=== PATIENT | female | born 1955 | race Caucasian/White ===

== ENCOUNTER → 2017-12-19 11:28 | Outpatient (CLI) | payer OTHER, SELFPAY ==
--- NOTE | 2017-12-19 | DI.MG.S_ITS ---
BILATERAL DIGITAL SCREENING MAMMOGRAM 3D/2D WITH CAD: 12/19/2017 CLINICAL: Routine screening. Comparison is made to exams dated: 12/07/2016 mammogram, 11/30/2015 mammogram, and 03/10/2014 mammogram - [facility]. There are scattered fibroglandular elements in both breasts. Current study was also evaluated with a Computer Aided Detection (CAD) system. No significant masses, calcifications, or other findings are seen in either breast. There has been no significant interval change. IMPRESSION: NEGATIVE There is no mammographic evidence of malignancy. A 1 year screening mammogram is recommended. This exam was interpreted at Station ID: [id number]. NOTE: For mammograms, a report in lay terms will be sent to the patient. Approximately 15% of breast malignancies will not be visualized mammographically. In the management of a palpable breast mass, a negative mammogram must not discourage biopsy of a clinically suspicious lesion. Electronically Signed By: Ankit fabian/penjovita:12/19/2017 23:34:12 letter sent: Normal Exam ACR BI-RADS Category 1: Negative 3341F
== END ==
PROVIDERS: PCP Family Medicine; Visit Provider Family Medicine
DX: Z12.31 Encounter for screening mammogram for malignant neoplasm of breast (principal)
CPT/HCPCS: 77063; 77067

== ENCOUNTER 2018-01-31 16:46 | Emergency (ER) | payer OTHER, SELFPAY ==
[2018-01-31 16:55] VITALS: BP 145/81; PULSE 67; RESP 20; TEMP 37; O2SAT 99; BMI 25.8
--- NOTE | 2018-01-31 18:26 | ED_ITS ---
HPI - Neuro Symptoms/Deficit General Chief Complaint: Neuro Symptoms/Deficit Stated Complaint: VISION CHANGES, TINGLING Time Seen by Provider: 01/31/18 18:06 Source: patient Mode of arrival: ambulatory Limitations: no limitations History of Present Illness HPI Narrative: The patient is a 62-year-old female who presents with blurry vision now resolved. She says she was getting a massage they worked her neck and up into the posterior head quite hard at the end. When she stood up she had some blurry vision both sides never passed out no blackening. She then sat down and has some numbness and tingling across both arms and her chest. No weakness no facial drooping no difficulty speaking. Division lasted probably about 5 min she still just was not feeling quite right EMS was called but she refused transport and came by POV. She says she did not eat much today probably did not drink a lot of water either. Overall her symptoms have completely resolved. On Anticoagulants: No Related Data Home Medications Medication Instructions Recorded Confirmed multivitamin 1 cap PO Q DAY #0 10/27/11 01/31/18 fluticasone 1 spray INTRANASAL PRN PRN #0 01/10/17 01/31/18 Previous Rx's Medication Instructions Recorded estriol (bulk) 100 % powder 0.2 % VAGINAL .COMPLEX #100 gram 01/16/18 Allergies Allergy/AdvReac Type Severity Reaction Status Date / Time latex [LATEX] Allergy Severe SKIN PEELS Verified 01/31/18 16:59 codeine [CODEINE] Allergy Mild DIZZY, Verified 01/31/18 16:59 NAUSEA, VOMITING Review of Systems Review of Systems GENERAL: Denies chills, fatigue, malaise, fever, sweats, travel HEENT: Denies sinus pain, ear pain, sore throat, difficulty swallowing, neck pain RESPIRATORY: Denies dyspnea, cough, wheezing, hemoptysis, sputum. CARDIOVASCULAR: Denies chest pain, palpitations, orthopnea, edema GASTROINTESTINAL: Denies nausea, vomiting, abdominal pain, diarrhea, constipation, melena. : Denies dysuria, frequency, incontinence, hematuria, urinary retention, flank pain. MUSCULOSKELETAL: Denies weakness, joint pain, or bony pain SKIN: No rash, no erythema, no pruritus NEUROLOGIC: See HPI PSYCHIATRIC: No concerning psychosocial issues. 12 point review of systems is negative except for those stated above and HPI [facility] Medical History VAIN I (vaginal intraepithelial neoplasia grade I) (Resolved) Surgical History History of varicose vein stripping (Resolved) Status post hysterectomy (Resolved 1979) Social History marital status: number of children: 2 household members: spouse lives independently: Yes caregiver/support person: No housing: house education level: college occupational status: previously employed Smoking Status: Former smoker second hand exposure: No alcohol intake: current substance use type: does not use Exam Initial Vital Signs Initial Vital Signs: Vital Signs Temperature 98.6 F 01/31/18 16:55 Pulse Rate 67 01/31/18 16:55 Respiratory Rate 20 01/31/18 16:55 Blood Pressure 145/81 H 01/31/18 16:55 Pulse Oximetry 99 01/31/18 16:55 GENERAL: Well-appearing, well-nourished and in no acute distress. HEENT: Head atraumatic,EOMI, pupils reactive, face symmetric, neck is supple no vertebral tenderness CARDIOVASCULAR: Regular rate and rhythm without murmurs, rubs or gallops. RESPIRATORY: Breath sounds equal bilaterally, no wheezes rales or rhonchi. ABDOMEN: Soft, nontender. Normoactive bowel sounds all 4 quadrants. No guarding or rebound. EXTREMITIES: Normal range of motion, no clubbing or edema. Neurovascularly intact NEUROLOGICAL: Alert and oriented x4.Normal gait and speech. Cranial nerves II through XII grossly intact. Good [id number], good [id number], strength equal bilaterally, no dysarthria or aphasia, sensation in tact to soft touch bilaterally, no visual changes, no facial droop SKIN: Warm, dry, no laceration, no petechiae, no rashes or lesions. Scores NIH Stroke Scale Level of Conciousness: Alert, keenly responsive Ask month/age: Answers both questions correctly. Open/close eyes, close hand: Performs both tasks correctly Best gaze horizontal: Normal Visual odell: No visual loss Facial palsy: Normal symetrical movement Left arm drift: No drift for full 10 sec Right arm drift: No drift for full 10 sec Left leg drift: No drift for full 10 sec Right leg drift: No drift for full 10 sec Limb ataxia: Absent Sensory on face/arms/legs: Normal, no sensory loss Best language: No aphasia, normal Dysarthria: Normal Extinction or inattention: No abnormality Total NIH Stroke scale score: 0 Course Orders Ordered: ED Orders 01/31/18 18:07 Basic Metabolic Panel Stat Complete Blood Count AUTO DIFF Stat Discontinued Medications Sodium Chloride (Normal Saline 0.9%) 1,000 mls @ 1,000 mls/hr IV BOLUS ONE Stop: 01/31/18 19:21 Last Infusion: 01/31/18 19:48 Dose: 0 mls/hr Admin: 01/31/18 18:51 Dose: 1,000 mls/hr Vital Signs - 8 hr 01/31/18 16:55 01/31/18 18:30 01/31/18 19:49 Temperature 98.6 F 98 F Pulse Rate 67 84 64 Respiratory Rate 20 20 Blood Pressure 145/81 H 109/68 Blood Pressure [Left Arm] 107/77 Pulse Oximetry 99 97 96 MDM - Neuro Symptoms/Deficit Lab Data Result diagrams: 01/31/18 18:07 01/31/18 18:07 Lab Results 01/31/18 01/31/18 Range/Units 18:07 18:07 WBC 6.1 (4.5-11.0) X10^3/uL RBC 4.57 (4.0-5.2) X10^6/uL Hgb 14.4 (12.0-16.0) g/dL Hct 43.4 (36-46) % MCV 94.9 (80-100) fL MCH 31.6 (26-34) PG MCHC 33.3 (30-36) % RDW 14.1 (11.6-14.8) % Plt Count 224 (150-400) X10^3/uL Neut % (Auto) 65.2 (50-75) % Lymph % (Auto) 26.7 (25-40) % Teller % (Auto) 5.3 (3-14) % Eos % (Auto) 2.0 (2-4) % Baso % (Auto) 0.8 (0-2) % Neut # (Auto) 3900 (9944-0046) /uL Sodium 142 (137-145) mmol/L Potassium 3.9 (3.4-5.1) mmol/L Chloride 104 (98-107) mmol/L Carbon Dioxide 28 (22-32) mmol/L BUN 17 (7-17) mg/dL Creatinine 0.90 (0.52-1.04) mg/dL Estimated GFR > 60.0 (>60) mL/min BUN/Creatinine Ratio 18.9 (6-22) Glucose 99 (80-110) mg/dL Calcium 9.0 (8.4-10.2) mg/dL MDM Narrative Medical decision making narrative: Patient overall is feeling better. Her symptoms lasted less than 1 hr in totality. Symptoms were bilaterally not consistent with CVA. This is likely due to dehydration and not eating much, along with aggressive massage. At this time I do not see need for head CT. I did discuss this with the patient. Overall she feels better ready and able to go. I discussed all findings with the patient and , Education has been performed regarding treatment plan, diagnosis, warning signs and symptoms and all concerns have been addressed. Verbally agree with and understood all of the above. Discharge Plan Departure Patient Disposition: Home Clinical Impression: Syncope, near Discharge Date/Time: 01/31/18 19:51 Interventions: ED Discharge Assessment Last Done: 01/31/18 19:49 Instructions: DI for Syncope in Adults (Fainting), DI for Dehydration -- Adult Activity Restrictions/Additional Instructions: *You have been diagnosed with near syncope *What to do: Symptoms today not consistent with stroke. Likely multifactorial with dehydration not eating and aggressive massage. Eat small frequent meals, increase fluid intake especially when having the size *Continue to take medications as directed *Follow up with your primary care provider in 2-3 days *Return to ER if you should have passing out, one-sided weakness, difficulty speaking, heart palpitations or any new, worsening or concerning symptoms Prescriptions: No Action multivitamin Tablet 1 cap PO Q DAY Qty: 0 RF: 0 fluticasone 16 GM spray,suspension 1 spray Intranasal PRN PRN (Reason: Congestion) Qty: 0 RF: 0 estriol (bulk) 100 % powder 0.2 % Vaginal .COMPLEX Qty: 100 RF: 5 Referrals: Renetta Navarro MD [Primary Care Provider] -
[2018-01-31 18:27] LABS: Add Manual Diff / Slide Review NO; Basophils Percent Auto 0.8 % (0-2); Hematocrit 43.4 % (36-46); Hemoglobin 14.4 g/dL (12.0-16.0); Lymphocytes Percent Auto 26.7 % (25-40); Mean Corpuscular HGB Conc 33.3 % (30-36); Mean Corpuscular Hemoglobin 31.6 PG (26-34); Mean Corpuscular Volume 94.9 fL (80-100); Monocytes Percent Auto 5.3 % (3-14); Neutrophils Absolute Auto 3900 /uL (3000-5900); Neutrophils Percent Auto 65.2 % (50-75); Platelet Count 224 X10^3/uL (150-400); Red Blood Cell Count 4.57 X10^6/uL (4.0-5.2); Red Cell Distribution Width 14.1 % (11.6-14.8); White Blood Cell Count 6.1 X10^3/uL (4.5-11.0)
[2018-01-31 18:30] VITALS: BP 107/77; PULSE 84; O2SAT 97
[2018-01-31 18:41] LABS: BUN Creatinine Ratio 18.9 (6-22); Blood Urea Nitrogen 17 mg/dL (7-17); Carbon Dioxide 28 mmol/L (22-32); Chloride 104 mmol/L (98-107); Estimated Glomerular Filt Rate > 60.0 mL/min (>60); Glucose 99 mg/dL (80-110); HEMOLYSIS < 15 (0-50); Potassium 3.9 mmol/L (3.4-5.1); Sodium 142 mmol/L (137-145)
[2018-01-31] MEDS: SODIUM CHLORIDE 0.9% 1,000 ML 1000 ML IV (18:51)
--- NOTE | 2018-01-31 19:05 | PC.NURSE ---
pt reports she had a deep tissue massage today. approx at 3:30pm when her massage was almost finished, she reports that her neck muscles were deeply massaged. she stood up and felt light headed. she then reports her vision was blurry and she developed b/l arm tingling from her elbows down to her fingertips. she reports that it only lasted briefly. she called the medics and they told her to get checked out
[2018-01-31 19:49] VITALS: BP 109/68; PULSE 64; RESP 20; TEMP 36.6; O2SAT 96
== END 2018-01-31 19:51 | disposition home or self-care (01) ==
PROVIDERS: Emergency Provider Emergency Medicine; Family Provider Family Medicine; PCP Family Medicine
DX: R55 Syncope and collapse (principal)
CPT/HCPCS: 36591; 80048; 85025; 96360; 99283; 99284; 99291

== ENCOUNTER → 2018-12-25 11:29 | Outpatient (CLI) | payer OTHER, SELFPAY ==
--- NOTE | 2018-12-25 | DI.MG.S_ITS ---
BILATERAL DIGITAL SCREENING MAMMOGRAM 3D/2D WITH CAD: 12/25/2018 CLINICAL: Routine screening. Comparison is made to exams dated: 12/19/2017 mammogram, 12/07/2016 mammogram, and 11/30/2015 mammogram - [facility]. There are scattered fibroglandular elements in both breasts. Current study was also evaluated with a Computer Aided Detection (CAD) system. No significant masses, calcifications, or other findings are seen in either breast. There has been no significant interval change. IMPRESSION: NEGATIVE There is no mammographic evidence of malignancy. A 1 year screening mammogram is recommended. This exam was interpreted at Station ID: [id number]. NOTE: For mammograms, a report in lay terms will be sent to the patient. Approximately 15% of breast malignancies will not be visualized mammographically. In the management of a palpable breast mass, a negative mammogram must not discourage biopsy of a clinically suspicious lesion. Electronically Signed By: Maira barroso/lisa:12/25/2018 12:11:18 letter sent: Normal Exam ACR BI-RADS Category 1: Negative 3341F
== END ==
PROVIDERS: Family Provider Family Medicine; PCP Family Medicine; Visit Provider Family Medicine
DX: Z12.31 Encounter for screening mammogram for malignant neoplasm of breast (principal)
CPT/HCPCS: 77063; 77067

== ENCOUNTER → 2019-12-31 16:01 | Outpatient (CLI) | payer OTHER, SELFPAY ==
--- NOTE | 2019-12-31 16:03 | DI.MG.S_ITS ---
BILATERAL DIGITAL SCREENING MAMMOGRAM 3D/2D WITH CAD: 12/31/2019 CLINICAL: Routine screening. Comparison is made to exams dated: 12/25/2018 mammogram, 12/19/2017 mammogram, and 12/07/2016 mammogram - [facility]. There are scattered fibroglandular elements in both breasts. Current study was also evaluated with a Computer Aided Detection (CAD) system. No significant masses, calcifications, or other findings are seen in either breast. There has been no significant interval change. IMPRESSION: NEGATIVE There is no mammographic evidence of malignancy. A 1 year screening mammogram is recommended. This exam was interpreted at Station ID: [id number]. NOTE: For mammograms, a report in lay terms will be sent to the patient. Approximately 15% of breast malignancies will not be visualized mammographically. In the management of a palpable breast mass, a negative mammogram must not discourage biopsy of a clinically suspicious lesion. Electronically Signed By: Will Bolanos M.D. jr/:01/01/2020 14:49:57 letter sent: Normal Exam ACR BI-RADS Category 1: Negative 3341F
== END ==
PROVIDERS: Family Provider Family Medicine; PCP Family Medicine; Referring Provider Family Medicine; Visit Provider Family Medicine
DX: Z12.31 Encounter for screening mammogram for malignant neoplasm of breast (principal)
CPT/HCPCS: 77063; 77067

== ENCOUNTER 2020-03-28 07:09 | Emergency (ER) | payer OTHER, SELFPAY ==
[2020-03-28 07:24] VITALS: BP 146/84; PULSE 88; RESP 16; TEMP 36.1; O2SAT 97; BMI 26.6
--- NOTE | 2020-03-28 07:36 | PC.NURSE ---
Patient is suppose to be flying out to [place] to be with daughter who is being induced. Patient is concerned about sudden onset of chills, nausea and diarrhea starting last night. Patient wanting to rule out COVID.
[2020-03-28 08:29] LABS: COVID19 -Nasal RAPID Negative (Negative)
[2020-03-28 09:06] LABS: Adenovirus Not Detected (Not Detect); Bordetella pertussis Not Detected (Not Detect); Chlamydophila pneumoniae Not Detected (Not Detect); Coronavirus 229E Not Detected (Not Detect); Coronavirus HKU1 Not Detected (Not Detect); Coronavirus NL 63 Not Detected (Not Detect); Coronavirus OC43 Not Detected (Not Detect); Human Metapneumovirus Not Detected (Not Detect); Human Rhinovirus/Enterovirus Not Detected (Not Detect); Influenza A Not Detected (Not Detect); Influenza B Not Detected (Not Detect); Mycoplasma pneumoniae Not Detected (Not Detect); Parainfluenza Virus 1 Not Detected (Not Detect); Parainfluenza Virus 2 Not Detected (Not Detect); Parainfluenza Virus 3 Not Detected (Not Detect); Parainfluenza Virus 4 Not Detected (Not Detect); Respiratory Syncytial Virus Not Detected (Not Detect); SARS- CoV-2 Not Detected (Not Detecte)
[2020-03-28 09:20] VITALS: BP 124/73; PULSE 67; RESP 17; O2SAT 98
[2020-03-28 09:25] VITALS: BP 145/83; PULSE 69; O2SAT 99
--- NOTE | 2020-03-28 09:59 | ED.NAVMDI ---
HPI - Nausea/Vomiting/Diarrhea General Chief complaint: Nausea/Vomiting/Diarrhea Stated complaint: chills,brendon,headache,stomach ache Time Seen by Provider: 03/28/20 07:11 Source: patient Mode of arrival: Ambulatory Limitations: no limitations History of Present Illness HPI Narrative: 65-year-old female former smoker with noncontributory medical history presents with nausea, vomiting, diarrhea and chills since last evening. She has had a vague headache but denies runny nose, sneezing, sore throat or cough. She denies any exposure to persons known or suspected of having COVID. She denies any recent antibiotics, travel or exposure to bad foods. She was with other people that had the same food without any symptoms. She presents for evaluation of possible COVID as she has upcoming plans to travel to see a [facility]. complaint: nausea, vomiting and diarrhea Onset (ago): hour(s) Description of Vomiting: food contents Description of Diarrhea: watery Associated Abdominal Pain: No Severity: moderate Relieving factors: none Exacerbating factors: none Related Data Home Medications Medication Instructions Recorded Confirmed multivitamin 1 cap PO Q DAY #0 10/27/11 01/27/20 fluticasone propionate 1 spray INTRANASAL PRN PRN #0 01/10/17 01/27/20 Allergies Allergy/AdvReac Type Severity Reaction Status Date / Time latex [LATEX] Allergy Severe SKIN PEELS Verified 03/28/20 07:26 codeine [CODEINE] Allergy Mild DIZZY, Verified 03/28/20 07:26 NAUSEA, VOMITING Review of Systems Review of Systems ROS Unobtainable: All systems reviewed & are unremarkable except as noted in HPI and below Constitutional Constitutional: Reports chills, Denies fatigue, Denies fever(s), Denies frequent falls, Reports headache(s), Denies lethargy and Denies weakness Eyes Eyes: Denies change in vision, Denies eye discharge, Denies irritation and Denies loss of vision ENT Ears, Nose, Mouth, and Throat: Denies change in voice, Denies dizziness, Reports headache(s), Denies neck pain, Denies sore throat and Denies throat swelling Cardiovascular Cardiovascular: Denies chest pain, Denies irregular heart rhythm, Denies lightheadedness, Denies palpitations, Denies dyspnea, Denies dyspnea on exertion and Denies orthopnea Respiratory Respiratory: Denies cough, Denies dyspnea, Denies dyspnea on exertion and Denies wheezing Gastrointestinal Gastrointestinal: Denies abdominal pain, Denies change in bowel habits, Reports diarrhea, Reports nausea and Reports vomiting Musculoskeletal Musculoskeletal: Denies neck pain and Denies numbness Integumentary/Breasts Skin/Breast: Denies pruritus, Denies erythema, Denies rash and Denies wounds Neurologic Neurologic: Denies behavioral changes, Denies confusion, Denies dizziness, Denies frequent falls, Reports headache(s), Denies loss of vision, Denies numbness and Denies weakness Psychiatric Psychiatric: Denies anxiety, Denies behavioral changes, Denies confusion, Denies depression, Denies homicidal ideation and Denies suicidal ideation Endocrine Endocrine: Denies fatigue, Denies flushing and Denies palpitations Hematologic/Lymphatic Hematologic/Lymphatic: Denies easy bruising Allergic/Immunologic Allergic/Immunologic: Denies urticaria, Denies throat swelling and Denies wheezing Patient History Medical History VAIN I (vaginal intraepithelial neoplasia grade I) Surgical History History of varicose vein stripping Status post hysterectomy (1979) Social History marital status: number of children: 2 household members: spouse lives independently: Yes caregiver/support person: No housing: house education level: college occupational status: previously employed Smoking Status: Former smoker second hand exposure: No alcohol intake: current substance use type: does not use Smoking Status: Former smoker Substance Use Type: does not use Exam Narrative Exam Narrative: GEN: AOx3 and in mild distress EYES: Pupils are equal, round, and reactive to light and accommodation. Extraoccular muscles are intact bilaterally. There is no subconjunctival hemorrhage or exudate. ENT: No pharyngeal erythema or exudate. No tender lymphadenopathy CHEST: Lungs are clear to auscultation bilaterally and free of wheezes, rales, or rhonchi. Heart rate is regular rhythm, there are no murmurs, clicks, rubs, or gallops. There is no chest wall tenderness. ABD: Abdomen is soft and nontender. There is no guarding or rebound. Bowel sounds are normal in all 4 quadrants. There is no mass or organomegaly. EXT: Full painless ROM of all extremities with no loss of sensation or strength. SKIN: Warm, pink, and dry. No erythema or rash Initial Vital Signs Initial Vital Signs: Vital Signs Temperature 96.9 F L 03/28/20 07:24 Pulse Rate 88 03/28/20 07:24 Respiratory Rate 16 03/28/20 07:24 Blood Pressure 146/84 H 03/28/20 07:24 Pulse Oximetry 97 03/28/20 07:24 Course Orders Ordered: ED Orders 03/28/20 07:37 COVID19 Stat Respiratory Panel (Film Array) Stat Vital Signs Vital signs: Vital Signs - 8 hr 03/28/20 07:24 03/28/20 09:20 03/28/20 09:25 Temperature 96.9 F L Pulse Rate 88 67 69 Respiratory Rate 16 17 Blood Pressure 146/84 H 124/73 145/83 H Pulse Oximetry 97 98 99 MDM - Nausea/Vomiting/Diarrhea Lab Data Labs: Lab Results 03/28/20 03/28/20 Range/Units 07:37 07:37 Chlamy pneumoniae PCR Not detected (Not Detect) Adenovirus (PCR) Not detected (Not Detect) B.parapertussis DNA PCR Not detected (Not Detect) Coronavirus OC43 (PCR) Not detected (Not Detect) Coronavirus HKU1 (PCR) Not detected (Not Detect) Coronavirus 229E (PCR) Not detected (Not Detect) COVID-19 PCR Negative Not detected (Negative) Coronavirus NL63 (PCR) Not detected (Not Detect) Human Metapneumovir PCR Not detected (Not Detect) Influenza Type A (PCR) Not detected (Not Detect) Influenza Type B (PCR) Not detected (Not Detect) M. pneumoniae (PCR) Not detected (Not Detect) Parainfluenza 1 (PCR) Not detected (Not Detect) Parainfluenza 2 (PCR) Not detected (Not Detect) Parainfluenza 3 (PCR) Not detected (Not Detect) Parainfluenza 4 (PCR) Not detected (Not Detect) RSV (PCR) Not detected (Not Detect) Entero/Rhino (PCR) Not detected (Not Detect) MDM Narrative Medical decision making narrative: Patient presented with concern for COVID, she did not an IV, fluids or any therapeutics despite discussion. We had a lengthy talk about the increased likelihood of false negative swabs for COVID this early and my strong recommendation was for her to not travel to see her daughter, who plans to be induced tomorrow as this would foot the potentially at risk. She expressed her understanding of the difficult nature of early diagnosis of COVID and states that she would stay home and likely pursue another test at the 5-8 day destini. Furthermore, she has been given return precautions regarding her symptoms and has had questions answered to her apparent satisfaction. Discharge Plan Departure Patient Disposition: Home Clinical Impression: Vomiting Qualifiers: Vomiting type: unspecified Vomiting Intractability: unspecified Nausea presence: unspecified Qualified Code(s): R11.10 - Vomiting, unspecified Diarrhea Qualifiers: Diarrhea type: unspecified type Qualified Code(s): R19.7 - Diarrhea, unspecified Instructions: Diarrhea, DI for Vomiting -- Adult Activity Restrictions/Additional Instructions: *You have been diagnosed with [ Vomiting and Diarrhea which could be COVID-19 symptoms. You've had 2 negative tests, but these could be negative this early in the disease process] *What to do: * per recommendations from the CDC and the [facility] Department of Health * stay home except to get medical care. Restrict activities outside your home, except for getting medical care. Do not go to work, school, or public areas. Avoid using public transportation, ride sharing, or taxis. * separate yourself from other people in your home. * call ahead before visiting your doctor * Wear a facemask * Cover your coughs and sneezes * Clean your hands often * Avoid sharing household items * Clean all high-touch services every day * Monitor your symptoms and seek prompt medical attention if your illness is worsening, particularly with difficulty in breathing. You may discontinue your isolation when: 1. You have been fever-free for at least 24 hours without the use of fever reducing medication, AND 2. Your symptoms are getting better 3. At least 10 days have passed since symptoms first appeared Testing is most likely to become positive at day 5-8 Prescriptions: No Action multivitamin Tablet 1 cap PO Q DAY Qty: 0 RF: 0 fluticasone propionate 16 GM spray,suspension 1 spray Intranasal PRN PRN (Reason: Congestion) Qty: 0 RF: 0 Referrals: Renetta Navarro MD [Primary Care Provider] -
== END 2020-03-28 09:25 | disposition home or self-care (01) ==
PROVIDERS: Emergency Provider Emergency Medicine; Family Provider Family Medicine; PCP Family Medicine
DX: R11.10 Vomiting, unspecified (principal); R19.7 Diarrhea, unspecified; R51.9 Headache, unspecified; Z20.828 Contact with and (suspected) exposure to other viral communicable diseases
CPT/HCPCS: 87633; 87635; 99281; 99282

== ENCOUNTER → 2020-04-01 09:28 | Outpatient (CLI) | payer OTHER, SELFPAY ==
[2020-04-01 10:50] LABS: COVID19 -Nasal RAPID Negative (Negative)
== END ==
PROVIDERS: Family Provider Family Medicine; PCP Family Medicine; Visit Provider Nurse Practitioner
DX: Z20.828 Contact with and (suspected) exposure to other viral communicable diseases (principal)
CPT/HCPCS: 87635

== ENCOUNTER → 2020-09-03 15:11 | Outpatient (CLI) | payer OTHER, SELFPAY ==
[2020-09-03 15:50] LABS: COVID19 -Nasal RAPID Negative (Negative)
== END ==
PROVIDERS: Family Provider Family Medicine; PCP Family Medicine; Visit Provider Specialist
DX: Z20.822 Contact with and (suspected) exposure to COVID-19 (principal)
CPT/HCPCS: 87635; C9803

== ENCOUNTER 2020-09-04 09:02 | Day surgery (SDC) | payer OTHER, SELFPAY ==
[2020-09-04] VITALS (13 sets, daily range): BP systolic 91–130; BP diastolic 50–80; PULSE 52–76; RESP 10–16; TEMP 36.1–37.2; O2SAT 91–99; BMI 26.9
[2020-09-04] MEDS: LACTATED RINGERS 1,000 ML 42 ML IV (09:34)
--- NOTE | 2020-09-04 10:26 | PM.HP.1 ---
History of Present Illness History of Present Illness Date Patient Seen: 09/04/20 Time Patient Seen: 10:15 Chief complaint: SCREENING COLONOSCOPY Narrative: The patient is a woman here for screening colonoscopy. Her last exam was 5 years ago. She has a family history of colon cancer in her dad. Patient History Medical History VAIN I (vaginal intraepithelial neoplasia grade I) Surgical History History of varicose vein stripping Status post hysterectomy (1979) Family & Social History Social History: household members spouse lives independently Yes caregiver/support person No Tobacco & Substance use: Smoking Status Former smoker alcohol intake current alcohol intake frequency a few times a week Substance Use Type does not use Meds Home Medications and Allergies Home Medications Medication Instructions Recorded Confirmed Type multivitamin 1 cap PO Q DAY #0 10/27/11 01/27/20 History fluticasone propionate 1 spray INTRANASAL PRN PRN #0 01/10/17 09/04/20 History sodium,potassium,mag sulfates 17.5 177 ml PO DAILY #354 ml 06/25/20 Rx gram-3.13 gram-1.6 gram oral soln Allergies Allergy/AdvReac Type Severity Reaction Status Date / Time latex [LATEX] Allergy Severe SKIN PEELS Verified 03/28/20 07:26 codeine [CODEINE] Allergy Mild DIZZY, Verified 03/28/20 07:26 NAUSEA, VOMITING Review of Systems Review of Systems ROS: Yes All systems reviewed with the patient and are negative except as otherwise documented Exam Vital Signs (past 8 hours): - 09/04/20 09:22 Temperature 98.9 F Pulse Rate 63 Respiratory Rate 13 Blood Pressure 122/80 Pulse Oximetry 99 Oxygen Delivery Method Room Air Narrative Exam Narrative: Pleasant cooperative patient no apparent distress. Lungs are clear to auscultation. No rales or rhonchi. Heart regular rate and rhythm no murmur gallop. Abdomen is soft nontender without mass. No obvious hernias. Patient is alert and oriented x3. Assessment & Plan Assessment & Plan narrative: The patient for a screening colonoscopy. I have discussed the procedure with them. Risks of bleeding, perforation which would necessitate major operation, failure to find remove all lesions, the potential tattoo were all discussed. All questions were answered. They wished to proceed.
--- NOTE | 2020-09-04 10:28 | PM.PREOP ---
Pre-operative Note COVID-19 COVID-19 status: Negative Result date/Date tested (Pos, Neg/Pending): 09/04/20 Interval Note History & Physical reviewed/Exam performed by Physician: Yes Changes to H&P: No ASA Class (for procedural sedation): I
[2020-09-04] MEDS: MIDAZOLAM 5 MG/5 ML VIAL IV (10:30)
[2020-09-04] MEDS: fentaNYL 250 MCG/5 ML INJ IV (10:31)
--- NOTE | 2020-09-04 11:08 | PM.OP.ENDO ---
Operative Date/Time/Diagnoses Date of procedure: 09/04/20 Time of procedure: 11:08 Pre-op diagnosis: Screening exam. Last exam 5 years ago. Family history of colon cancer. Post-op diagnosis: same Procedure & Clinicians Study performed: Colonoscopy Same procedure as scheduled: Yes Indications: Screening Procedure Notes SCOAP/Timeout: Performed Procedure in detail: The patient was placed in the left lateral decubitus position and underwent IV sedation directed by the surgeon consisting of fentanyl and Versed. Digital exam was unremarkable. The scope was inserted and advanced through the rectum into the sigmoid, descending, transverse, and ascending colon. Patient was noted to have sigmoid diverticulosis.. The cecum was reached identified by the ileocecal valve and the appendiceal opening. The ileocecal valve was successfully cannulated. The terminal ileum was normal in appearance. The scope was gradually brought out. No Polyps were found. The scope ultimately was retroflexed in the rectum. The appearance was normal. The scope was removed and the patient tolerated the procedure well. Prep was very good Scope withdrawal time: 6 minutes Sedation minutes: 27 Findings: diverticulosis Specimen(s): none sent Complications: none Post-procedure Recommendations: Colonscopy in 5 years Follow up: as needed Disposition: PACU
--- NOTE | 2020-09-04 11:30 | SUR.PHASEI ---
Patient aroused spontaneously, denies pain/nausea. HOB and knees elevated, fluids given. dozing off with RA sat 90%. Put on O2 at 2LNP
--- NOTE | 2020-09-04 11:54 | SUR.PHASEI ---
1150 Taken to [facility], reported off to Danica Ding RN - informed of O2 sat, PO intake. She will monitor as needed
[2020-09-04] MEDS: ONDANSETRON 4 MG/2 ML INJ IV (12:04)
--- NOTE | 2020-09-04 12:04 | SUR.PHASEII ---
pt given zofran for nausea.
--- NOTE | 2020-09-04 12:09 | SUR.PHASEII ---
Pt had snack and drink and waiting on pt's to arrive. Pt is reading and sitting up. States pain is a 4 and states she is tolerating it and awaiting to see if tylenol works.
--- NOTE | 2020-09-04 12:15 | SUR.PHASEII ---
Pt states relief from nausea after zofran
--- NOTE | 2020-09-04 12:19 | SUR.PHASEII ---
pt states nausea is better . States she is still sleepy.
--- NOTE | 2020-09-04 12:21 | SUR.PHASEII ---
wrote a note on this pt about pain but it was wrong pt she is not having any pain.
--- NOTE | 2020-09-04 12:40 | SUR.PHASEII ---
pt sitting on side of bed. Went over discharge instructions with pt and pt states she understands them. pt to be discharged with her . Pt denies any more nausea. Pt getting dressed.
== END 2020-09-04 12:45 | disposition home or self-care (01) ==
PROVIDERS: Family Provider Family Medicine; PCP Family Medicine; Referring Provider Specialist; Visit Provider Specialist
PROC: 0DJD8ZZ Inspection of Lower Intestinal Tract, Via Natural or Artificial Opening Endoscopic (ICD-10-PCS; CPT 45378; principal; 2020-09-04 10:15)
DX: Z12.11 Encounter for screening for malignant neoplasm of colon (principal); Z80.0 Family history of malignant neoplasm of digestive organs; K57.30 Diverticulosis of large intestine without perforation or abscess without bleeding
CPT/HCPCS: 45378; 99152; J2250; J2405; J3010

== ENCOUNTER → 2020-09-11 09:34 | Outpatient (CLI) | payer OTHER, SELFPAY ==
--- NOTE | 2020-09-11 09:35 | DI.RAD.S_ITS ---
PROCEDURE: XR ACUTE ABDOMEN SERIES INDICATIONS: Crampy abd pain after [id number] ago.r/o perf/constipati TECHNIQUE: One view chest and two views of the abdomen were acquired. COMPARISON: [facility], CHEST 2 VIEW, 05/15/2011, 15:23. FINDINGS: Surgical changes and devices: None. Chest: Lungs are clear except for linear stranding at the medial right lung base where there is increased soft tissue prominence at the medial cardiophrenic sulcus on the right, with an appearance potentially simply reflecting a prominent pericardiophrenic fat pad.. Heart size is normal. No pleural effusions. No pneumoperitoneum. Abdomen: Bowel gas pattern is normal. No suspicious calcifications. Visualized solid organ contours appear normal. Bones: No suspicious bony lesions. Note is made of mild scoliosis over the lumbosacral spine. This is convex leftward centered at L3-4. IMPRESSION: The bowel gas pattern is nonspecific. There is no subdiaphragmatic free air. Note is made of prominence of the soft tissues at the medial right lung base where a prominent pericardiophrenic fat pad likely is increased in size from the comparison study 05/15/11. Follow-up plain film assessment in 3 and 6 months is recommended to confirm stability of appearance over time in that area. Dictated by: Harish Ding M.D. on 09/11/2020 at 12:02 Approved by: Harish Ding M.D. on 09/11/2020 at 12:05
[2020-09-11 10:04] LABS: Add Manual Diff / Slide Review NO; Basophils Absolute Auto 100 /uL (0-100); Basophils Percent Auto 1.1 % (0-2); Eosinophils Absolute Auto 200 /uL (0-450); Eosinophils Percent Auto 3.2 % (2-4); Hemoglobin 14.1 g/dL (12.0-16.0); Lymphocytes Absolute Auto 2200 /uL (1100-4500); Lymphocytes Percent Auto 39.4 % (25-40); Mean Corpuscular HGB Conc 32.8 % (30-36); Mean Corpuscular Hemoglobin 31.6 PG (26-34); Mean Corpuscular Volume 96.3 fL (80-100); Monocytes Absolute Auto 400 /uL (0-900); Monocytes Percent Auto 6.6 % (3-14); Neutrophils Absolute Auto 2700 /uL (1500-7000); Neutrophils Percent Auto 49.7 % (50-75); Platelet Count 228 X10^3/uL (150-400); Red Blood Cell Count 4.46 X10^6/uL (4.0-5.2); Red Cell Distribution Width 14.3 % (11.6-14.8); White Blood Cell Count 5.5 X10^3/uL (4.5-11.0)
[2020-09-11 10:15] LABS: Alanine Aminotransferase 22 IU/L (<35); Albumin 4.3 g/dL (3.5-5.0); Albumin Globulin Ratio 1.5 (1.0-2.8); Alkaline Phosphatase 94 U/L (38-126); Aspartate Aminotransferase 26 IU/L (14-36); Bilirubin Total 0.6 mg/dL (0.2-1.3); Blood Urea Nitrogen 20 mg/dL (7-17); Calcium 9.5 mg/dL (8.4-10.2); Carbon Dioxide 28 mmol/L (22-32); Chloride 105 mmol/L (98-107); Estimated Glomerular Filt Rate > 60.0 mL/min (>60); Globulin 2.8 g/dL (1.7-4.1); Glucose 92 mg/dL (80-110); HEMOLYSIS < 15 (0-50); Potassium 4.2 mmol/L (3.4-5.1); Sodium 138 mmol/L (137-145); Total Protein 7.1 g/dL (6.3-8.2)
== END ==
PROVIDERS: Family Provider Family Medicine; PCP Family Medicine; Referring Provider Specialist; Visit Provider Specialist
DX: R10.9 Unspecified abdominal pain (principal)
CPT/HCPCS: 36415; 74022; 80053; 85025

== ENCOUNTER → 2020-09-18 11:03 | Outpatient (CLI) | payer OTHER, SELFPAY ==
--- NOTE | 2020-09-18 11:04 | DI.US.S_ITS ---
PROCEDURE: US PELVIC COMPLETE INDICATIONS: PELVIC CRAMPING TECHNIQUE: Real-time scanning was performed of the pelvic organs, with image documentation. Additional endovaginal scanning was necessary due to incomplete visualization of the adnexal and endometrial structures by transabdominal scanning. COMPARISON: None. FINDINGS: Uterus: Uterus is surgically absent. At the cervix there is a small hyperechoic 2 x 4 x 6 mm focus, likely dystrophic calcification or inspissated mucus. Ovaries: The ovaries could not be located. Other: No pathologic free abdominal or pelvic fluid. Bladder volume during scanning was 432 cc, and after voiding was 86 cc. IMPRESSION: Relatively large bladder volume at time of scanning, 432 cc. Postvoid residual is 86 cc. Surgically absent uterus, small area of calcification or inspissated mucus is noted within the cervical canal. No abnormal fluid collection within the pelvis visualized. Ovaries could not be located. Dictated by: Harish Ding M.D. on 09/18/2020 at 11:59 Approved by: Harish Ding M.D. on 09/18/2020 at 12:02
== END ==
PROVIDERS: Family Provider Family Medicine; PCP Family Medicine; Referring Provider Family Medicine; Visit Provider Family Medicine
DX: R10.2 Pelvic and perineal pain (principal); R10.9 Unspecified abdominal pain; Z90.710 Acquired absence of both cervix and uterus
CPT/HCPCS: 76830; 76856

== ENCOUNTER → 2021-01-07 10:58 | Outpatient (CLI) | payer MEDICARE, SELFPAY ==
--- NOTE | 2021-01-07 | DI.MG.S_ITS ---
BILATERAL DIGITAL SCREENING MAMMOGRAM 3D/2D WITH CAD: 01/07/2021 CLINICAL: Routine screening. Comparison is made to exams dated: 12/31/2019 mammogram, 12/25/2018 mammogram, and 12/19/2017 mammogram - [facility]. There are scattered fibroglandular elements in both breasts. Current study was also evaluated with a Computer Aided Detection (CAD) system. No significant masses, calcifications, or other findings are seen in either breast. There has been no significant interval change. IMPRESSION: NEGATIVE There is no mammographic evidence of malignancy. A 1 year screening mammogram is recommended. This exam was interpreted at Station ID: [id number]. NOTE: For mammograms, a report in lay terms will be sent to the patient. Approximately 15% of breast malignancies will not be visualized mammographically. In the management of a palpable breast mass, a negative mammogram must not discourage biopsy of a clinically suspicious lesion. Electronically Signed By: Elia beebe/lisa:01/07/2021 13:36:27 letter sent: Normal Exam ACR BI-RADS Category 1: Negative 3341F
== END ==
PROVIDERS: Family Provider Family Medicine; PCP Family Medicine; Referring Provider Family Medicine; Visit Provider Family Medicine
DX: Z12.31 Encounter for screening mammogram for malignant neoplasm of breast (principal)
CPT/HCPCS: 77063; 77067

== ENCOUNTER → 2021-07-05 08:35 | Outpatient (CLI) | payer OTHER, SELFPAY ==
--- NOTE | 2021-07-05 08:37 | DI.RAD.S_ITS ---
PROCEDURE: FL BARIUM SWALLOW WITH AIR INDICATIONS: Sore throat; dysphagia; GERD COMPARISON: None. FINDINGS: Function: Swallowing reflex is normal. No pathologic pooling of contrast material in the vallecula or piriform sinuses. No laryngotracheal penetration or aspiration. C6-C7 anterior endplate bone spur causes mild contouring of the posterior cervical esophagus. There is normal esophageal peristalsis. No elicited gastroesophageal reflux. There is normal transit of a calibrated barium tablet through the esophagus into the stomach. Morphology: Air-contrast images demonstrate normal mucosal morphology. No esophageal strictures, extrinsic mass effects, or diverticula. Limited images of the stomach demonstrate normal appearance. IMPRESSION: 1. C6-C7 endplate osteophytosis causes mild contouring of the posterior margin of the cervical esophagus. 2. Otherwise, normal examination. Dictated by: Milka Sanchez MD, PhD on 07/05/2021 at 11:50 Approved by: Milka Sanchez MD, PhD on 07/05/2021 at 11:53
== END ==
PROVIDERS: Family Provider Family Medicine; PCP Family Medicine; Referring Provider Physician Assistant; Visit Provider Physician Assistant
DX: R13.10 Dysphagia, unspecified (principal); K21.9 Gastro-esophageal reflux disease without esophagitis; J02.9 Acute pharyngitis, unspecified; M25.78 Osteophyte, vertebrae
CPT/HCPCS: 74221

== ENCOUNTER → 2022-01-18 08:12 | Outpatient (CLI) | payer OTHER, SELFPAY ==
--- NOTE | 2022-01-18 | DI.MG.S_ITS ---
BILATERAL DIGITAL SCREENING MAMMOGRAM 3D/2D WITH CAD: 01/18/2022 CLINICAL: Routine screening. Comparison is made to exams dated: 01/07/2021 mammogram, 12/31/2019 mammogram, and 12/25/2018 mammogram - [facility]. There are scattered areas of fibroglandular density in both breasts (category b / 25%-50% glandular tissue). Current study was also evaluated with a Computer Aided Detection (CAD) system. No significant masses, calcifications, or other findings are seen in either breast. There has been no significant interval change. IMPRESSION: NEGATIVE There is no mammographic evidence of malignancy. A 1 year screening mammogram is recommended. Based on the Tyrer Cuzick model (a risk assessment model) the patient's lifetime risk is 3.5% and her 10 year risk is 1.8%. According to the ACR, ACS, and NCCN guidelines, an annual breast MRI exam along with mammogram is recommended if the patient's lifetime risk is 20% or greater. This exam was interpreted at Station ID: [id number]. NOTE: For mammograms, a report in lay terms will be sent to the patient. Approximately 15% of breast malignancies will not be visualized mammographically. In the management of a palpable breast mass, a negative mammogram must not discourage biopsy of a clinically suspicious lesion. Electronically Signed By: Lin webster/lisa:01/18/2022 13:00:54 letter sent: Normal Exam ACR BI-RADS Category 1: Negative 3341F
== END ==
PROVIDERS: Family Provider Family Medicine; PCP Family Medicine; Referring Provider Family Medicine; Visit Provider Family Medicine
DX: Z12.31 Encounter for screening mammogram for malignant neoplasm of breast (principal)
CPT/HCPCS: 77063; 77067

== ENCOUNTER 2022-10-15 12:22 | Emergency (ER) | payer OTHER, SELFPAY ==
[2022-10-15 12:45] VITALS: BP 138/86; PULSE 64; RESP 14; TEMP 36.3; O2SAT 99; BMI 26.2
--- NOTE | 2022-10-15 13:13 | PC.NURSE ---
spoke to Dr. Grande. about patient at triage. will order xray
--- NOTE | 2022-10-15 13:14 | DI.RAD.S_ITS ---
PROCEDURE: XR CERVICAL SPINE 2V OR 3V INDICATIONS: tingling. TECHNIQUE: 3 view(s) of the cervical spine were acquired. COMPARISON: None. FINDINGS: Bones: No fractures or dislocations to the T4 level. The lateral masses of C1 appear intact on the odontoid view. Straightening of cervical lordosis. Moderate-severe multilevel cervical spondylosis most pronounced from C4-5 through C6-7. Associated moderate facet arthropathy. Mild grade 1 anterolisthesis of C7 on T1 as well as C3 on C4. No suspicious bony lesions. Soft tissues: No prevertebral soft tissue swelling. IMPRESSION: Cervical spine without acute fracture or traumatic malalignment. Advanced multilevel cervical spondylosis. Straightening of cervical lordosis with minimal grade 1 anterolisthesis of C3 on C4 as well as C7 on T1 which is favored to represent combination of patient positioning and spondylosis. Dictated by: Rene Desir M.D. on 10/15/2022 at 12:35 Approved by: Rene Desir M.D. on 10/15/2022 at 12:37
--- NOTE | 2022-10-15 15:51 | ED_ITS ---
HPI - Extremity Problem General Chief complaint: Extremity Problem,Nontraumatic Stated complaint: lt arm tingling Time Seen by Provider: 10/15/22 15:51 Source: patient Mode of arrival: Family Vehicle Limitations: no limitations History of Present Illness HPI Narrative: 67-year-old female who is on PPI with complaint of paresthesias in both hands. Patient states she went to [place] she was driving home she felt some numbness tingling sensation in her left the involved the hand and then up to the elbow. This lasted for a period of time, she then felt similar changes on her right hand over the thumb and hand extending upwards. Stopped at the elbows for both upper extremities did not extend elsewhere. 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 She states it was not really painful but was uncomfortable. She is not had similar symptoms in the past accepts sometimes upon awakening when her arms above her head. She states she thought it might he her positioning in the car she change this she moved her hand put it in her lap. She did not notice any color changes. She did not have any similar symptoms elsewhere, no headaches, no chest pain no shortness of breath, no nausea or vomiting, no vision changes. No difficulty with speech facial droop, no numbness tingling or weakness of her lower extremities. Patient has not had chronic neck pain, she has been seeing PT for right shoulder. No prior surgeries. Former tobacco, no regular alcohol use, no substance abuse. She follows with Dr. Boyce for her primary care. 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 Related Data Home Medications Medication Instructions Recorded Confirmed multivitamin 1 cap PO Q DAY ##0 10/27/11 03/02/22 Previous Rx's Medication Instructions Recorded omeprazole 20 mg capsule,delayed 20 mg PO DAILY #30 caps 06/30/21 release gentamicin 0.3 % eye drops 2 drp EYE-BOTH TID #5 mL 03/02/22 doxycycline monohydrate 100 mg 100 mg PO BID #20 caps 03/03/22 capsule propranolol 10 mg tablet 10 mg PO TID PRN anxiety #30 tabs 09/02/22 Allergies Allergy/AdvReac Type Severity Reaction Status Date / Time latex [LATEX] Allergy Severe SKIN PEELS Verified 10/15/22 13:09 codeine [CODEINE] Allergy Mild DIZZY, Verified 10/15/22 13:09 NAUSEA, VOMITING amoxicillin AdvReac Intermediate Diarrhea Verified 10/15/22 13:09 clavulanic acid AdvReac Intermediate Diarrhea Verified 10/15/22 13:09 Review of Systems Review of Systems ROS Unobtainable: All systems reviewed & are unremarkable except as noted in HPI and below Patient History Medical History VAIN I (vaginal intraepithelial neoplasia grade I) Surgical History History of varicose vein stripping Status post hysterectomy (1979) Social History marital status: number of children: 2 household members: spouse lives independently: Yes caregiver/support person: No housing: house education level: college occupational status: previously employed Smoking Status: Former smoker second hand exposure: No alcohol intake: current substance use type: does not use Smoking Status: Former smoker tobacco type: cigarettes alcohol intake frequency: a few times a week Substance Use Type: does not use Exam Narrative Exam Narrative: GENERAL: Alert and oriented x three, female in mild distress. HEENT: Head normocephalic, atraumatic, EOMI, pupils reactive, face symmetric, moist mucous membranes NECK: Supple, full range of motion CARDIOVASCULAR: Regular rate and rhythm without murmurs, rubs or gallops. RESPIRATORY: Breath sounds equal bilaterally, no wheezes rales or rhonchi. ABDOMEN: Soft, nontender. Normoactive bowel sounds all 4 quadrants. No guarding or rebound, rigidity, no mass : No CVA tenderness EXTREMITIES: Normal range of motion, no clubbing or edema. Neurovascularly intact. 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 Normal sensation throughout. 2+ radial pulses bilaterally. Normal movement of fingers, hands wrists elbow and shoulder. Cap refill less than 2 seconds in all 5 fingers. Negative Spurling test neck bilaterally. NEUROLOGICAL: Cranial nerves II through XII grossly intact. Moving all extremities SKIN: Warm, dry, no petechiae, no rashes or lesions. Initial Vital Signs Initial Vital Signs: Vital Signs Temperature 97.4 F L 10/15/22 12:45 Pulse Rate 64 10/15/22 12:45 Respiratory Rate 14 10/15/22 12:45 Blood Pressure 138/86 10/15/22 12:45 Pulse Oximetry 99 10/15/22 12:45 Oxygen Delivery Method Room Air 10/15/22 12:45 Course Orders Ordered: ED Orders 10/15/22 13:14 XR cervical spine 2V or 3V Stat Vital Signs Vital signs: Vital Signs - 8 hr 10/15/22 12:45 10/15/22 16:09 Temperature 97.4 F L Pulse Rate 64 56 L Respiratory Rate 14 16 Blood Pressure 138/86 141/73 H Pulse Oximetry 99 100 Oxygen Delivery Method Room Air Room Air MDM - Extremity (Nontraumatic) Imaging Data cervical xray: Radiologist's Impression: Close Cervical Spine X-Ray (Signed) Rene Desir - 10/15/22 Mammogram Screening (Addendum) Lin Leyva - 01/18/22 DI Result CC 07/21/21 Barium Swallow X-Ray (Signed) Milka Sanchez - 07/05/21 Barium Swallow X-Ray (Cancelled) 07/05/21 Mammogram Screening (Signed) Elia Tong - 01/07/21 Pelvis Ultrasound (Signed) Harish Ding - 09/18/20 Chest/Abdomen X-ray (Signed) Harish Ding - 09/11/20 Mammogram Screening (Signed) Will Bolanos - 12/31/19 Mammogram Screening (Signed) Maira Martinez - 12/25/18 Mammogram Screening (Signed) Ankit Hartman - 12/19/17 Launch?[address] [address] XRay Report Signed Patient: Prudence Esparza MR#: [id number] : 1955 Acct:[id number] Age/Sex: 67 / F Date of Service: 10/15/22 Loc: ED Accession Number: [id number] ?? Procedure: XR cervical spine 2V or 3V Ordering Provider: Elaine Grande D.O. PROCEDURE:? XR CERVICAL SPINE 2V OR 3V ? INDICATIONS:? tingling. ? TECHNIQUE:? 3 view(s) of the cervical spine were acquired.? ? COMPARISON:? None. ? FINDINGS:? ? Bones:? No fractures or dislocations to the T4 level.? The lateral masses of C1 appear intact on the odontoid view.? Straightening of cervical lordosis.? Moderate- severe multilevel cervical spondylosis most pronounced from C4-5 through C6-7.? Associated moderate facet arthropathy.? Mild grade 1 anterolisthesis of C7 on T1 as well as C3 on C4.? No suspicious bony lesions.? ? Soft tissues:? No prevertebral soft tissue swelling.? ? ? IMPRESSION:? Cervical spine without acute fracture or traumatic malalignment.? Advanced multilevel cervical spondylosis.? Straightening of cervical lordosis with minimal grade 1 anterolisthesis of C3 on C4 as well as C7 on T1 which is favored to represent combination of patient positioning and spondylosis. ? ? Dictated by: Rene Desir M.D. on 10/15/2022 at 12:35 ? ? Approved by: Rene Desir M.D. on 10/15/2022 at 12:37 MDM Narrative Medical decision making narrative: 67-year-old female presents with complaint of left arm that then was in the right arm over the similar pattern. Both have resolved. She would no other acute neurologic changes suspect nerve impingement either at the neck or farther down she does have some degenerative changes in her neck but no red flag changes. Plan follow up with Dr. Boyce, she is seeing PT for her shoulder discussed following up to talk with them. Discussed return precautions all questions answered. Discharge Plan Departure Patient Disposition: Home Clinical Impression: Paresthesia of both hands Instructions: DI for Numbness/Tingling Activity Restrictions/Additional Instructions: Please follow-up with Dr. Navarro. I suspect you are having some nerve impingement causing your symptoms today, maybe helpful to follow with physical therapy. Talk with Dr. Navarro and they can discuss further workup as needed. Continue home medications as prescribed. You can take Tylenol and/or ibuprofen as needed for symptoms. Please return for new weakness, numbness loss of sensation, decreased script or dropping objects, severe headaches, vision changes, weakness on one side such as your arm and leg, your chest pain or shortness of breath nausea or vomiting or other new or concerning changes. Prescriptions: No Action omeprazole 20 mg capsule,delayed release(DR/EC) 20 mg PO DAILY Qty: 30 3RF Rx Instructions: Take one capsule one hour prior to bedtime OR 30 minutes prior to eating in the a.m. ONCE DAILY x 2 weeks. Continue if med is helping symptoms gentamicin 0.3 % drops 2 drp EYE-BOTH TID Qty: 5 0RF multivitamin Tablet 1 cap PO Q DAY Qty: 0 doxycycline monohydrate 100 mg capsule 100 mg PO BID Qty: 20 0RF propranolol 10 mg tablet 10 mg PO TID PRN (Reason: anxiety) Qty: 30 2RF Referrals: Renetta Navarro MD [Primary Care Provider] - Stand Alone Forms: Patient Portal/API
[2022-10-15 16:09] VITALS: BP 141/73; PULSE 56; RESP 16; O2SAT 100
== END 2022-10-15 16:09 | disposition home or self-care (01) ==
PROVIDERS: Emergency Provider Emergency Medicine; Family Provider Family Medicine; PCP Family Medicine
DX: R20.2 Paresthesia of skin (principal)
CPT/HCPCS: 72040; 99283

== ENCOUNTER → 2023-02-02 09:22 | Outpatient (CLI) | payer OTHER, SELFPAY ==
--- NOTE | 2023-02-02 | DI.MG.S_ITS ---
BILATERAL DIGITAL SCREENING MAMMOGRAM 3D/2D WITH CAD: 02/02/2023 CLINICAL: Routine screening. Comparison is made to exams dated: 01/18/2022 mammogram, 01/07/2021 mammogram, 12/31/2019 mammogram, 12/25/2018 mammogram, and 12/19/2017 mammogram - [facility]. There are scattered areas of fibroglandular density in both breasts (category b / 25%-50% glandular tissue). Current study was also evaluated with a Computer Aided Detection (CAD) system. No significant masses, calcifications, or other findings are seen in either breast. There has been no significant interval change. IMPRESSION: NEGATIVE There is no mammographic evidence of malignancy. A 1 year screening mammogram is recommended. Based on the Tyrer Cuzick model (a risk assessment model) the patient's lifetime risk is 3.3% and her 10 year risk is 1.8%. According to the ACR, ACS, and NCCN guidelines, an annual breast MRI exam along with mammogram is recommended if the patient's lifetime risk is 20% or greater. This exam was interpreted at Station ID: [id number]. NOTE: For mammograms, a report in lay terms will be sent to the patient. Approximately 15% of breast malignancies will not be visualized mammographically. In the management of a palpable breast mass, a negative mammogram must not discourage biopsy of a clinically suspicious lesion. Electronically Signed By: Harish gonzalez/lisa:02/02/2023 14:10:57 letter sent: Normal Exam ACR BI-RADS Category 1: Negative 3341F
--- NOTE | 2023-02-02 10:57 | DI.RAD.S_ITS ---
PROCEDURE: XR LUMBAR SPINE MIN 4V INDICATIONS: Low back pain; sensation of pressure TECHNIQUE: 5 views of the lumbar spine were acquired, including bilateral oblique views. COMPARISON: None. FINDINGS: Bones: 5 nonrib-bearing vertebrae are present. No vertebral body compression fractures. No suspicious bony lesions. There is cnzi-ab-rbjvoiqi dextroconvex lumbar scoliosis. There is moderate to severe disc space narrowing at L2-L3 and L3-L4, with at least moderate disc space narrowing at L4-L5 and L5-S1. Endplate irregularity and sclerosis are seen, which are worst at L2-L3 and L5-S1. Lower lumbar spine facet arthropathy is seen. Soft tissues: Overlying bowel gas pattern is normal. No suspicious soft tissue calcifications. Oblique images: No pars defects. IMPRESSION: Dextroconvex scoliosis and multiple levels lumbar spine degenerative change can be seen by plain film. If it would be helpful for clinical management decision making, please consider a dedicated, scheduled lumbar spine MRI for further evaluation (assuming that there is no contraindication). Dictated by: Chinedu Rich M.D. on 02/02/2023 at 11:27 Approved by: Chinedu Rich M.D. on 02/02/2023 at 11:28
== END ==
PROVIDERS: Family Provider Family Medicine; PCP Family Medicine; Referring Provider Family Medicine; Visit Provider Family Medicine
DX: M47.816 Spondylosis without myelopathy or radiculopathy, lumbar region (principal); Z12.31 Encounter for screening mammogram for malignant neoplasm of breast; M41.9 Scoliosis, unspecified; M54.50 Low back pain, unspecified
CPT/HCPCS: 72110; 77063; 77067

== ENCOUNTER → 2023-06-05 09:42 | Outpatient (CLI) | payer OTHER, SELFPAY ==
[2023-06-05 12:59] LABS: Cholesterol 226 mg/dL (140-199); Glucose 82 mg/dL (80-110); HDL Cholesterol 69 mg/dL (40-60); LDL Cholesterol Calculated 137 mg/dL (<100); Triglycerides 101 mg/dL (35-150)
== END ==
PROVIDERS: Family Provider Family Medicine; PCP Family Medicine; Referring Provider Family Medicine; Visit Provider Family Medicine
DX: K21.9 Gastro-esophageal reflux disease without esophagitis (principal); J30.9 Allergic rhinitis, unspecified
CPT/HCPCS: 36415; 80061; 82947

== ENCOUNTER → 2023-09-15 10:04 | Outpatient (CLI) | payer OTHER, SELFPAY ==
[2023-09-15 12:52] LABS: Cholesterol 218 mg/dL (140-199); HDL Cholesterol 85 mg/dL (40-60); LDL Cholesterol Calculated 116 mg/dL (<100); Triglycerides 86 mg/dL (35-150)
== END ==
PROVIDERS: Family Provider Family Medicine; PCP Family Medicine; Referring Provider Family Medicine; Visit Provider Family Medicine
DX: E78.5 Hyperlipidemia, unspecified (principal)
CPT/HCPCS: 36415; 80061

== ENCOUNTER → 2024-01-09 10:04 | Outpatient (CLI) | payer OTHER, SELFPAY ==
[2024-01-09 11:05] LABS: Cholesterol 207 mg/dL (140-199); Glucose 88 mg/dL (80-110); HDL Cholesterol 80 mg/dL (40-60); Triglycerides 82 mg/dL (35-150)
[2024-01-09 11:16] LABS: LDL Cholesterol Direct 106 mg/dL (<100)
== END ==
PROVIDERS: Family Provider Family Medicine; PCP Family Medicine; Referring Provider Family Medicine; Visit Provider Family Medicine
DX: E78.00 Pure hypercholesterolemia, unspecified (principal); K21.9 Gastro-esophageal reflux disease without esophagitis; Z13.1 Encounter for screening for diabetes mellitus
CPT/HCPCS: 80061; 36415; 82465; 82947; 83718; 83721; 84478

== ENCOUNTER → 2024-02-21 16:24 | Outpatient (CLI) | payer OTHER, SELFPAY ==
--- NOTE | 2024-02-21 | DI.MG.S_ITS ---
BILATERAL DIGITAL SCREENING MAMMOGRAM 3D/2D WITH CAD: 02/21/2024 CLINICAL: Routine screening. Comparison is made to exams dated: 02/02/2023 mammogram, 01/18/2022 mammogram, 01/07/2021 mammogram, 12/31/2019 mammogram, 12/25/2018 mammogram, and 12/19/2017 mammogram - [facility]. There are scattered areas of fibroglandular density (category b / 25%-50% glandular tissue). Current study was also evaluated with a Computer Aided Detection (CAD) system. No significant masses, calcifications, or other findings are seen in either breast. There has been no significant interval change. IMPRESSION: NEGATIVE There is no mammographic evidence of malignancy. A 1 year screening mammogram is recommended. Based on the Tyrer Cuzick model (a risk assessment model) the patient's lifetime risk is 3.0% and her 10 year risk is 1.9%. According to the ACR, ACS, and NCCN guidelines, an annual breast MRI exam along with mammogram is recommended if the patient's lifetime risk is 20% or greater. This exam was interpreted at Station ID: [id number]. NOTE: For mammograms, a report in lay terms will be sent to the patient. Approximately 15% of breast malignancies will not be visualized mammographically. In the management of a palpable breast mass, a negative mammogram must not discourage biopsy of a clinically suspicious lesion. Electronically Signed By: Neva Marvin M.D., Ph.D. bailey/lisa:02/22/2024 22:04:21 letter sent: Normal Exam ACR BI-RADS Category 1: Negative
== END ==
LOC: MAMMO 16:24
PROVIDERS: Family Provider Family Medicine; PCP Family Medicine; Referring Provider Family Medicine; Visit Provider Family Medicine
DX: Z12.31 Encounter for screening mammogram for malignant neoplasm of breast (principal)
CPT/HCPCS: 77063; 77067

== ENCOUNTER 2024-03-29 17:30 | Emergency (ER) | payer OTHER, SELFPAY ==
[2024-03-29] VITALS (7 sets, daily range): BP systolic 142–152; BP diastolic 74–81; PULSE 68–71; RESP 12–18; O2SAT 94–96; BMI 26.3
--- NOTE | 2024-03-29 17:39 | DI.RAD.S_ITS ---
PROCEDURE: XR CHEST 1V INDICATIONS: chest pain TECHNIQUE: One view of the chest was acquired. COMPARISON: None. FINDINGS: Surgical changes and devices: None. Lungs and pleura: Lungs are clear. No pleural effusions or pneumothorax. Mediastinum: Mediastinal contours appear normal. Heart size is normal. Bones and chest wall: No suspicious bony lesions. Overlying soft tissues appear unremarkable. IMPRESSION: No acute cardiopulmonary abnormality is seen. Dictated by: Georges Montes De Oca M.D. on 03/29/2024 at 17:54 Approved by: Georges Montes De Oca M.D. on 03/29/2024 at 17:55
--- NOTE | 2024-03-29 17:44 | EKG_ITS ---
[address] [address] Test Date: 2024-03-29 Pat Name: Prudence Espraza Department: [facility] Room: Gender: Female Stable Manager: DB : 1955 Requested By: Order Number: [id number] Reading MD: Marck Castillo Measurements Intervals [place] Rate: 66 P: 44 CO: 160 QRS: -26 QRSD: 84 T: 30 QT: 422 QTc: 442 Interpretive Statements Normal sinus rhythm Nonspecific T wave abnormality Electronically Signed On 04-04-2024 9:05:53 PST by Marck Castillo
[2024-03-29 17:55] LABS: Add Manual Diff / Slide Review NO; Basophils Absolute Auto 100 /uL (0-100); Basophils Percent Auto 0.7 % (0-2); Eosinophils Absolute Auto 100 /uL (0-450); Eosinophils Percent Auto 0.7 % (2-4); Hemoglobin 13.3 g/dL (12.0-16.0); Lymphocytes Absolute Auto 1900 /uL (1100-4500); Lymphocytes Percent Auto 18.9 % (25-40); Mean Corpuscular HGB Conc 33.3 % (30-36); Mean Corpuscular Hemoglobin 31.8 PG (26-34); Mean Corpuscular Volume 95.5 fL (80-100); Monocytes Absolute Auto 700 /uL (0-900); Monocytes Percent Auto 6.6 % (3-14); Neutrophils Absolute Auto 7500 /uL (1500-7000); Neutrophils Percent Auto 73.1 % (50-75); Platelet Count 263 X10^3/uL (150-400); Red Blood Cell Count 4.19 X10^6/uL (4.0-5.2); Red Cell Distribution Width 14.6 % (11.6-14.8); White Blood Cell Count 10.2 X10^3/uL (4.5-11.0)
[2024-03-29 18:05] LABS: PTT Partial Thromboplastin Tim 33 SECONDS (25.1-36.5)
[2024-03-29 18:08] LABS: Alanine Aminotransferase 28 IU/L (<35); Albumin 4.3 g/dL (3.5-5.0); Albumin Globulin Ratio 1.5 (1.0-2.8); Alkaline Phosphatase 107 U/L (38-126); Aspartate Aminotransferase 34 IU/L (14-36); BUN Creatinine Ratio 21.6 (6-22); Bilirubin Total 0.5 mg/dL (0.2-1.3); Blood Urea Nitrogen 19 mg/dL (7-17); Calcium 9.3 mg/dL (8.4-10.2); Carbon Dioxide 25 mmol/L (22-32); Chloride 103 mmol/L (98-107); Creatine Kinase 280 U/L (30-135); Estimated Glomerular Filt Rate > 60 mL/min (>60); Globulin 2.8 g/dL (1.7-4.1); Glucose 116 mg/dL (80-110); HEMOLYSIS < 15 (0-50); Lipase 83 U/L (23-300); Potassium 3.9 mmol/L (3.4-5.1); Sodium 134 mmol/L (137-145); Total Protein 7.1 g/dL (6.3-8.2)
[2024-03-29 18:19] LABS: NT-proBNP (BNP-Adult 18+) 128 pg/mL (<125); Troponin I < 0.012 ng/mL (0.01-0.034)
--- NOTE | 2024-03-29 18:55 | ED.CHESTPAIN ---
HPI - Chest Pain General Chief Complaint: Chest Pain Stated Complaint: Chest Pain Time Seen by Provider: 03/29/24 17:59 Source: patient and EMS Mode of arrival: EMS Limitations: no limitations History of Present Illness HPI narrative: Patient is a 69-year-old female. No prior diagnosis of coronary artery disease. Stated that this morning she woke up with some discomfort around her upper back and her right shoulder blade. She reports that as the day has gone on it has moved to the left shoulder and then some discomfort around to the front on the left side. She states the somewhat worse with palpation and potentially somewhat worse with certain movements. She was not had these symptoms before. No problems breathing. No fevers. No cough. No abdominal pain. No skin changes. No known trauma. Related Data Home Medications Medication Instructions Recorded Confirmed multivitamin 1 cap PO Q DAY ##0 10/27/11 01/12/24 Allergies Allergy/AdvReac Type Severity Reaction Status Date / Time latex [LATEX] Allergy Severe SKIN PEELS Verified 03/29/24 17:39 codeine [CODEINE] Allergy Mild DIZZY, Verified 03/29/24 17:39 NAUSEA, VOMITING amoxicillin AdvReac Intermediate Diarrhea Verified 03/29/24 17:39 clavulanic acid AdvReac Intermediate Diarrhea Verified 03/29/24 17:39 Review of Systems Review of Systems ROS Unobtainable: All systems reviewed & are unremarkable except as noted in HPI and below Patient History Medical History Gastroesophageal reflux disease VAIN I (vaginal intraepithelial neoplasia grade I) Surgical History History of varicose vein stripping Status post hysterectomy (1979) Social History marital status: number of children: 2 household members: spouse lives independently: Yes caregiver/support person: No housing: house education level: college occupational status: previously employed Smoking Status: Former smoker second hand exposure: No alcohol intake: current substance use type: does not use Smoking Status: Former smoker tobacco type: cigarettes alcohol intake frequency: a few times a week Exam Initial Vital Signs Initial Vital Signs: Vital Signs Blood Pressure 152/81 H 03/29/24 17:38 Const General: cooperative, comfortable and No ill appearing HENMT Head: normal to inspection and normocephalic Chest Chest: No crepitus and tenderness (Some mild tenderness to palpation left anterior chest wall) Resp Effort & Inspection: normal respiratory effort Auscultation: clear to auscultation bilaterally Cardio Rate: regular rate Rhythm: regular rhythm Back/Spine/Pelvis Cervical Spine: No cervical spinal tenderness Thoracic/Lumbar Spine: paraspinal tenderness Skin General: no rashes or lesions noted Neuro General: patient alert, patient awake and moves all extremities Extrem General: No edema Course Orders Ordered: ED Orders 03/29/24 17:39 XR chest 1V Stat EKG-12 Lead Stat 03/29/24 17:44 Complete Blood Count AUTO DIFF Stat Comprehensive Metabolic Panel Stat Lipase Stat Magnesium Stat NT-proBNP (BNP-Adult 18+) Stat PTT Partial Thromboplastin Ar Stat Prothrombin Time INR Stat Troponin & CK Cardiac Panel Stat Discontinued Medications Aspirin (Aspirin 81 Mg Chew Tab) 324 mg PO NOW ONE Stop: 03/29/24 17:40 Last Admin: 03/29/24 17:50 Dose: Not Given Documented By: MPO Vital Signs Vital signs: Vital Signs - 8 hr 03/29/24 17:38 03/29/24 17:58 03/29/24 18:00 Pulse Rate 68 68 Respiratory Rate 12 15 Blood Pressure 152/81 H Pulse Oximetry 96 96 03/29/24 18:30 03/29/24 19:00 03/29/24 19:09 Pulse Rate 71 71 Respiratory Rate 15 18 Blood Pressure 142/74 H Pulse Oximetry 96 94 03/29/24 19:10 Pulse Rate Respiratory Rate Blood Pressure 142/74 H Pulse Oximetry MDM - Chest Pain Lab Data Attestation: I reviewed the patient's lab results. 03/29/24 17:44 03/29/24 17:44 Labs: Lab Results 03/29/24 Range/Units 17:44 WBC 10.2 (4.5-11.0) X10^3/uL RBC 4.19 (4.0-5.2) X10^6/uL Hgb 13.3 (12.0-16.0) g/dL Hct 40.0 (36-46) % MCV 95.5 (80-100) fL MCH 31.8 (26-34) PG MCHC 33.3 (30-36) % RDW 14.6 (11.6-14.8) % Plt Count 263 (150-400) X10^3/uL Neut % (Auto) 73.1 (50-75) % Lymph % (Auto) 18.9 L (25-40) % [place] % (Auto) 6.6 (3-14) % Eos % (Auto) 0.7 L (2-4) % Baso % (Auto) 0.7 (0-2) % Neut # (Auto) 7500 H (4359-6913) /uL Lymph # (Auto) 1900 (7556-5048) /uL [place] # (Auto) 700 (0-900) /uL Eos # (Auto) 100 (0-450) /uL Baso # (Auto) 100 (0-100) /uL PT 11.0 (9.4-12.5) SECONDS INR 1.0 (0.9-1.3) APTT 33 (25.1-36.5) SECONDS Sodium 134 L (137-145) mmol/L Potassium 3.9 (3.4-5.1) mmol/L Chloride 103 (98-107) mmol/L Carbon Dioxide 25 (22-32) mmol/L BUN 19 H (7-17) mg/dL Creatinine 0.88 (0.52-1.04) mg/dL Estimated GFR > 60 (>60) mL/min BUN/Creatinine Ratio 21.6 (6-22) Glucose 116 H (80-110) mg/dL Calcium 9.3 (8.4-10.2) mg/dL Magnesium 2.0 (1.6-2.3) mg/dL Total Bilirubin 0.5 (0.2-1.3) mg/dL AST 34 (14-36) IU/L ALT 28 (<35) IU/L Alkaline Phosphatase 107 (38-126) U/L Total Creatine Kinase 280 H (30-135) U/L Troponin I < 0.012 (0.01-0.034) ng/mL NT-Pro-B Natriuret Pep 128 H (<125) pg/mL Total Protein 7.1 (6.3-8.2) g/dL Albumin 4.3 (3.5-5.0) g/dL Globulin 2.8 (1.7-4.1) g/dL Albumin/Globulin Ratio 1.5 (1.0-2.8) Lipase 83 (23-300) U/L Imaging Data Chest x-ray: Radiologist's Impression: PROCEDURE: XR CHEST 1V INDICATIONS: chest pain TECHNIQUE: One view of the chest was acquired. COMPARISON: None. FINDINGS: Surgical changes and devices: None. Lungs and pleura: Lungs are clear. No pleural effusions or pneumothorax. Mediastinum: Mediastinal contours appear normal. Heart size is normal. Bones and chest wall: No suspicious bony lesions. Overlying soft tissues appear unremarkable. IMPRESSION: No acute cardiopulmonary abnormality is seen. ECG Data Attestation: I personally reviewed and interpreted this ECG as follows: Interpretation: Sinus rhythm Ventricular rate is 66 Normal axis Normal QRS Nonspecific ST T wave changes MDM Narrative Medical decision making narrative: Patient was had persistent symptoms for greater than 6 hours. Negative troponin. Nonspecific changes in the EKG. Her discomfort is also somewhat reproducible with palpation and position. I do have low suspicion for ACS although high advised that the patient contact your primary care doctor to discuss further testing with stress test. I do feel we can hold on further radiologic studies. She was given return precautions and follow-up instructions. She expressed understanding and agreement. We also discussed her high blood pressure. She was no history of high blood pressure. We discussed taking her blood pressure at home and talk with her primary care doctor about these values to further evaluate if she needs to start on medications. Discharge Plan Departure Patient Disposition: Home Clinical Impression: Upper back pain, Hypertension Instructions: Essential Hypertension Activity Restrictions/Additional Instructions: I do recommend that you take your blood pressure at home like we discussed. Contact your primary care doctor for a follow-up to discuss the indications for a stress test. Return to the emergency department for new or worsening symptoms. Prescriptions: No Action multivitamin Tablet 1 cap PO Q DAY Qty: 0 Referrals: Renetta Navarro MD [Primary Care Provider] - Stand Alone Forms: Patient Portal/API/Survey
== END 2024-03-29 19:10 | disposition home or self-care (01) ==
PROVIDERS: Emergency Medicine; Emergency Provider Emergency Medicine; Family Provider Family Medicine; PCP Family Medicine
DX: M54.89 Other dorsalgia (principal); I10 Essential (primary) hypertension; Z87.891 Personal history of nicotine dependence
CPT/HCPCS: 36415; 71045; 80053; 82550; 83690; 83735; 83880; 84484; 85025; 85610; 85730; 93005; 99283; 99284

== ENCOUNTER → 2024-06-10 09:51 | Outpatient (CLI) | payer OTHER, SELFPAY ==
--- NOTE | 2024-06-10 09:53 | DI.RAD.S_ITS ---
PROCEDURE: XR LUMBAR SPINE MIN 4V INDICATIONS: low back pain TECHNIQUE: 5 views of the lumbar spine were acquired, including bilateral oblique views. COMPARISON: Located Within [facility], , XR LUMBAR SPINE MIN 4V, 02/02/2023, 10:58. FINDINGS: Bones: 5 nonrib-bearing vertebrae are present. There is overall straightening of normal cervical curvature. There is trace retrolisthesis of L2-L3. Multilevel moderate to severe degenerative disc space narrowing with subchondral sclerosis is present most severe at L2-3 and L5-S1. Multilevel foraminal narrowing most severe at L3-4 and L5-S1. Multilevel anterior osteophytes are present. Overall, minimal progression since 2022. No vertebral body compression fractures. No suspicious bony lesions. Soft tissues: Overlying bowel gas pattern is normal. No suspicious soft tissue calcifications. Oblique images: No pars defects. IMPRESSION: Multilevel degenerative changes as described above. Dictated by: Diana Haywood M.D. on 06/10/2024 at 12:26 Approved by: Diana Haywood M.D. on 06/10/2024 at 12:27
[2024-06-10 11:25] LABS: BUN Creatinine Ratio 18.4 (6-22); Blood Urea Nitrogen 16 mg/dL (7-17); Calcium 9.2 mg/dL (8.4-10.2); Carbon Dioxide 27 mmol/L (22-32); Chloride 105 mmol/L (98-107); Estimated Glomerular Filt Rate > 60 mL/min (>60); Glucose 97 mg/dL (80-110); HEMOLYSIS < 15 (0-50); Potassium 4.4 mmol/L (3.4-5.1); Sodium 139 mmol/L (137-145)
== END ==
LOC: LAB 09:52
PROVIDERS: Family Provider Family Medicine; PCP Family Medicine; Referring Provider Family Medicine; Visit Provider Family Medicine
DX: M54.50 Low back pain, unspecified (principal); R10.9 Unspecified abdominal pain; M51.369 Other intervertebral disc degeneration, lumbar region without mention of lumbar back pain or lower extremity pain
CPT/HCPCS: 36415; 72110; 80048

== ENCOUNTER → 2024-06-28 07:38 | Outpatient (CLI) | payer OTHER, SELFPAY ==
--- NOTE | 2024-06-28 07:39 | DI.US.S_ITS ---
PROCEDURE: US RENAL COMPLETE INDICATIONS: flank pain TECHNIQUE: Real-time scanning was performed of the kidneys and bladder, with image documentation. COMPARISON: None. FINDINGS: Kidneys: Kidneys are normal in size. Right kidney measures 9.3 cm long; left kidney measures 9.7 cm long. Right renal cortical thickness is 1.2 cm; left renal cortical thickness is 2.0 cm. Renal cortical echotexture is normal. No hydronephrosis or nephrolithiasis. No suspicious solid mass lesions. 0.8 cm cyst is seen in the right kidney at the inferior pole. Bladder: Pre-void bladder volume is 545 mL. Post-void residual is 25 mL. Pre-void images demonstrate no intraluminal masses or stones. On pre-void images, bilateral ureteral jets are noted with color Doppler interrogation. (Of note, ureteral jets may not be detectable in up to 25% of cases due to insufficient differences in specific gravity between ureteral and bladder urine). Miscellaneous: No free pelvic fluid. IMPRESSION: No hydronephrosis or nephrolithiasis. Approved by: Elia Tong M.D. on 06/28/2024 at 13:14
== END ==
PROVIDERS: Family Provider Family Medicine; PCP Family Medicine; Referring Provider Family Medicine; Visit Provider Family Medicine
DX: R10.9 Unspecified abdominal pain (principal)
CPT/HCPCS: 76770

== ENCOUNTER 2024-08-05 09:13 | Day surgery (SDC) | payer OTHER, SELFPAY ==
--- NOTE | 2024-08-05 | PATH_ITS ---
[facility] Accession Number: [id number] No. of containers..01 Tissue . 01 Material submitted: . esophagus, E-G Junction - GE JUNCTION . 01 Diagnosis: GE JUNCTION: Squamocolumnar junctional mucosa with mild chronic inflammation. No goblet cell metaplasia identified on AB-PAS stain with control staining appropriately. No dysplasia or malignancy identified. EDMUND 08/08/2024 1656 Local . 01 Electronically signed: . Leatha Murphy MD, Pathologist NPI- [id number] . 01 Gross description: . Received in formalin with two identifiers and GE junction, are three barros soft tissue fragments 0.3 to 0.4 cm in greatest dimension. Submitted in cassette A1. ([id number]) /EDMUND 08/06/2024 0844 Local . 01 Pathologist provided ICD-10: K21.9 . 01 CPT . 342360, 155034 Specimen Comment: A courtesy copy of this report has been sent to [phone] Performed at: [address] [id number] MD Jesus Pedraza MD Phone: [phone]
[2024-08-05 09:42] VITALS: BP 139/83; PULSE 60; RESP 16; TEMP 36.1; O2SAT 100
[2024-08-05] MEDS: LACTATED RINGERS 1,000 ML 42 ML IV (09:57)
--- NOTE | 2024-08-05 10:13 | P.HP_ITS ---
History of Present Illness History of Present Illness Date Patient Seen: 08/05/24 Chief complaint: [facility] Medical History Gastroesophageal reflux disease VAIN I (vaginal intraepithelial neoplasia grade I) Surgical History History of varicose vein stripping Status post hysterectomy (1979) Social History marital status: number of children: 2 household members: spouse lives independently: Yes caregiver/support person: No housing: house education level: college occupational status: previously employed Smoking Status: Never smoker second hand exposure: No alcohol intake: current substance use type: does not use Meds Home Medications and Allergies Home Medications Medication Instructions Recorded Confirmed Type multivitamin 1 cap PO Q DAY ##0 10/27/11 07/08/24 History propranolol 10 mg tablet 10 mg PO TID PRN anxiety #30 tabs 04/16/24 08/05/24 Rx Allergies Allergy/AdvReac Type Severity Reaction Status Date / Time latex [LATEX] Allergy Severe SKIN PEELS Verified 08/05/24 09:38 codeine [CODEINE] Allergy Mild DIZZY, Verified 08/05/24 09:38 NAUSEA, VOMITING amoxicillin AdvReac Intermediate Diarrhea Verified 08/05/24 09:38 clavulanic acid AdvReac Intermediate Diarrhea Verified 08/05/24 09:38 Exam Vital Signs (past 8 hours): - 08/05/24 09:42 Temperature 97 F L Pulse Rate 60 Respiratory Rate 16 Blood Pressure 139/83 Pulse Oximetry 100 Oxygen Delivery Method Room Air Oxygen Delivery Method Room Air Narrative Exam Narrative: Oropharynx free of lesions Chest clear to auscultation percussion Cardiac exam reveals no S3 or murmur Assessment & Plan Assessment & Plan narrative: Longstanding GE reflux need for upper endoscopy. Risks, benefits and alternatives have been explained. Time-Based Coding :: [TOTAL MINUTES] spent with patient and on the chart (including review of chart, obtaining history, exam, reviewing outside data, placing orders, documenting exam and treatment plan, and counseling patient) on [DATE]. 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
--- NOTE | 2024-08-05 10:15 | PM.OP.ENDO ---
Operative Date/Time/Diagnoses Date of procedure: 08/05/24 Time of procedure: 10:16 Pre-op diagnosis: See indication and findings Post-op diagnosis: same Procedure & Clinicians Study performed: EGD Same procedure as scheduled: Yes Indications: GE reflux Surgeon: Kinga Lr Procedure Notes Procedure in detail: After informed consent was obtained the patient was placed in left lateral decubitus position. The video upper scope was placed into the oropharynx and with the patient's help swallowed into the esophagus. The esophagus stomach and duodenal were carefully examined. On withdrawal, retroflexed view the GE junction was performed. The scope was removed. The patient tolerated the procedure well. Blood loss none Complications none Sedation mac Findings 1. Red to pink patches without erosions at the GE junction located between 35 and 38 cm. Multiple biopsies were taken. 2. The appearance of some asymmetric scarring at the GE junction wide-open. 3. Normal stomach without evidence of any polyps 4. Normal duodenal bulb and sweep We will be in touch regarding biopsies. She does not at this point need routine follow-up endoscopy. I endorse her use of Pepcid as needed
[2024-08-05 10:30] VITALS: BP 97/66; PULSE 64; RESP 12; TEMP 36.2; O2SAT 93
[2024-08-05 10:35] VITALS: BP 99/69; PULSE 59; RESP 15; O2SAT 94
[2024-08-05 10:42] VITALS: BP 112/76; PULSE 60; RESP 15; O2SAT 97
== END 2024-08-05 11:05 | disposition home or self-care (01) ==
PROVIDERS: Family Provider Family Medicine; PCP Family Medicine; Referring Provider Internal Medicine Gastroenterology; Visit Provider Internal Medicine Gastroenterology
PROC: 0DJ08ZZ Inspection of Upper Intestinal Tract, Via Natural or Artificial Opening Endoscopic (ICD-10-PCS; CPT 43239; principal; 2024-08-05 10:30)
DX: K21.00 Gastro-esophageal reflux disease with esophagitis, without bleeding (principal)
CPT/HCPCS: 43239; J2704

== ENCOUNTER → 2024-12-23 15:24 | Outpatient (CLI) | payer OTHER, SELFPAY ==
--- NOTE | 2024-12-23 15:26 | DI.RAD.S_ITS ---
PROCEDURE: XR SHOULDER RT MIN 2V INDICATIONS: Right shoulder injury TECHNIQUE: 4 views of the shoulder were acquired. COMPARISON: [facility], , SHOULDER MINIMUM 2VIEW RIGHT, 08/18/2015, 16:31. FINDINGS: Bones: There is anatomic alignment. There is linear lucency in the greater tuberosity, with a new area of linear sclerosis at the inferior aspect. No displaced osseous fragment. Soft tissues: No suspicious soft tissue calcifications. IMPRESSION: Possible acute nondisplaced isolated fracture of the greater tuberosity, can be better assessed with CT if persistent concern. Dictated by: Cal Granados M.D. on 12/23/2024 at 16:29 Approved by: Cal Granados M.D. on 12/23/2024 at 16:46
== END ==
LOC: RAD 15:25
PROVIDERS: Family Provider Family Medicine; PCP Family Medicine; Referring Provider Registered Nurse; Visit Provider Registered Nurse
DX: M25.511 Pain in right shoulder (principal)
CPT/HCPCS: 73030

== ENCOUNTER → 2024-12-26 19:52 | Outpatient (CLI) | payer OTHER, SELFPAY ==
--- NOTE | 2024-12-26 19:53 | DI.MRI.S_ITS ---
PROCEDURE: MR SHOULDER RT WO CON INDICATIONS: rt shoulder pain, ? greater trochanter fx, poss rotator cuff TECHNIQUE: Noncontrast oblique coronal T2 fast spin echo with fat saturation, oblique sagittal T1 spin echo and T2 fast spin echo with fat saturation, axial T1 spin echo and T2 fast spin echo with fat saturation through the shoulder. COMPARISON: [facility], CR, XR SHOULDER RT 2+ VIEWS, 12/23/2024, 15:44. FINDINGS: Image quality: Excellent. Rotator cuff: There is full-thickness tearing of the supraspinatus and infraspinatus tendons at their distal insertions with proximal tendon retraction measuring approximately 4.4 cm. Moderate atrophy and grade 2 fatty infiltration of the supraspinatus and infraspinatus muscles. Teres minor tendon is intact. Moderate subscapularis tendinosis. Bones and bursae: No acute trabecular bone injury or fracture. Humeral head is high riding and abuts the undersurface of the acromion. Chronic traction cystic changes are seen at the posterior superior humeral head and greater tuberosity near the rotator cuff tendon insertions. Mild glenohumeral cartilage irregularity and marginal osteophyte formation. Moderate degenerative changes are seen at the acromioclavicular joint. Small glenohumeral effusion communicates with the subacromial/subdeltoid and subcoracoid bursa. Capsule and soft tissues: Diffuse labral degeneration and chronic degenerative tearing. Proximal biceps long head tendon demonstrates moderate to severe tendinosis and partial intrasubstance tearing. Glenohumeral ligaments are intact. There is effacement of the normal fat signal in the rotator interval. IMPRESSION: 1. No acute osseous fracture. 2. Full-thickness tearing of the supraspinatus and infraspinatus tendons at their distal insertions with proximal tendon retraction measuring up to 4.4 cm. Moderate atrophy and grade 2 fatty infiltration of the supraspinatus and infraspinatus muscles. Findings suggest chronic tearing. 3. Moderate subscapularis tendinosis. 4. Partial intrasubstance tearing of the proximal biceps long head tendon superimposed on moderate to severe tendinosis. 5. Mild glenohumeral osteoarthrosis and moderate acromioclavicular osteoarthrosis. 6. Small glenohumeral effusion communicates with the subacromial/subdeltoid and subcoracoid bursa. Approved by: Elia Tong M.D. on 12/27/2024 at 8:24
== END ==
LOC: MRI 19:52
PROVIDERS: Family Provider Family Medicine; PCP Family Medicine; Referring Provider Family Medicine; Visit Provider Family Medicine
DX: M75.121 Complete rotator cuff tear or rupture of right shoulder, not specified as traumatic (principal); M25.511 Pain in right shoulder; M19.011 Primary osteoarthritis, right shoulder; S46.111A Strain of muscle, fascia and tendon of long head of biceps, right arm, initial encounter; M25.411 Effusion, right shoulder
CPT/HCPCS: 73221